=== PATIENT | male | born 1955 | race Caucasian/White ===

== ENCOUNTER 2023-02-27 07:37 | Emergency (ER) | payer BC, MEDICARE ==
[2023-02-27] MEDS: HYDROmorphone 2 MG/ML Syringe IVPUSH ONE (08:03)
[2023-02-27 08:28] LABS: BASOPHILS ABSOLUTE AUTO 0.01 K/uL (0.02-0.10); BASOPHILS PERCENT AUTO 0.1 % (0.0-0.5); EOSINOPHILS ABSOLUTE AUTO 0.15 K/uL (0.04-0.40); EOSINOPHILS PERCENT AUTO 1.2 % (1.0-5.0); HEMATOCRIT 40.4 % (40.0-54.0); HEMOGLOBIN 14.1 g/dL (13.0-18.0); LYMPHOCYTES ABSOLUTE AUTO 1.06 K/uL (1.50-4.00); LYMPHOCYTES PERCENT AUTO 8.6 % (20.0-40.0); MEAN CORPUSCULAR HEMOGLOBIN 29.9 pg (27.0-32.0); MEAN CORPUSCULAR HGB CONC 34.9 g/dL (31.0-35.0); MEAN CORPUSCULAR VOLUME 86 fL (76-96); MEAN PLATELET VOLUME 9.4 fL (6.0-10.0); MONOCYTES ABSOLUTE AUTO 1.09 K/uL (0.20-0.80); MONOCYTES PERCENT AUTO 8.9 % (3.0-10.0); NEUTROPHILS ABSOLUTE AUTO 9.97 K/uL (2.00-7.50); NEUTROPHILS PERCENT AUTO 81.2 % (45.0-70.0); PLATELET COUNT,PLT 249 K/uL (150-400); RED BLOOD CELL COUNT 4.71 M/uL (4.50-6.50); RED CELL DISTRIBUTION WIDTH 12.3 % (11.0-16.0); WHITE BLOOD CELL COUNT,WBC 12.3 K/uL (4.0-11.0)
[2023-02-27 08:47] LABS: A/G RATIO 1.3 (0.8-2.0); ALBUMIN 3.8 g/dL (3.4-5.0); ANION GAP 12.6 mmol/L (5.0-15.0); BILIRUBIN TOTAL 0.9 mg/dL (0.0-1.0); BUN/CREATININE RATIO 14.6 (6-25); CALCIUM 8.6 mg/dL (8.5-10.1); CREATININE 0.89 mg/dL (0.70-1.30); EST CRCL DRUG DOSING (CG) 85.78 mL/min; POTASSIUM,K 3.6 mmol/L (3.5-5.1); PROTEIN TOTAL,TP 6.8 g/dL (6.4-8.2)
[2023-02-27 08:53] LABS: MAGNESIUM 1.6 mg/dL (1.8-2.4); TROPONIN I HIGH SENSITIVITY 8.8 pg/ml (<=60.4)
[2023-02-27 08:58] LABS: INR 0.9 (1.0-3.5)
[2023-02-27] MEDS ORDERED: Ketorolac 10 MG Tab ONE (09:00)
[2023-02-27] MEDS ORDERED: Sodium Chloride 0.9% 10 ML Syringe FLUSH PRN (09:03)
[2023-02-27 09:05] LABS: PROTHROMBIN TIME 9.8 sec (9.0-11.5)
[2023-02-27] MEDS: Ketorolac 30 MG/ML SDV IVPUSH ONE (09:11)
[2023-03-01] MEDS: Ketorolac 30 MG/ML SDV ONE (08:32)
[2023-03-01] MEDS: Ketorolac 10 MG Tab ONE (08:33)
== END 2023-02-27 09:30 | disposition home or self-care (01) ==
LOC: LB.ED 07:37
DX: R07.81 Pleurodynia (principal); Z88.0 Allergy status to penicillin
CPT/HCPCS: 36415; 71045; 80053; 83735; 84484; 85025; 85610; 85730; 93005; 93010; 96374; 96375; 99283; 99285-25; A9270-GY; J1170; J1885